=== PATIENT | female | born 1990 | race Caucasian/White ===

== ENCOUNTER 2021-06-05 15:00 | Outpatient (CLI) | payer BC ==
[2021-06-05 16:06] VITALS: BP 116/83; PULSE 90; RESP 18; TEMP 96.7
--- NOTE | 2021-06-13 09:40 | P.MSEPDOC ---
Presenting Problems - Arrival Data Date of Arrival on Unit: 06/05/21 Time of Arrival on Unit: 15:15 Mode of Transport: Ambulatory - Complaint OB-Reason for Admission/Chief Complaint: Other Comment: Itching, increased BP at home, green discharge 2 days ago Medical History - Information : 3 Para: 2 Number of Living Children: 2 - Gestational Age Gestational Age by JUNITO (wks/days): 35 Weeks and 6 Days Review of Systems - Review of Systems Constitutional: No problems Breast: No problems ENT: No problems Cardiovascular: No problems Respiratory: No problems Gastrointestinal: No problems Genitourinary: No problems Musculoskeletal: No problems Neurological: No problems Skin: Itching Vital Signs - Temperature Temperature: 96.7 F Temperature Source: Temporal Artery Scan - Pulse Right Sitting Brachial Pulse Rate: 90 Pulse Assessment Method: Automatic Cuff - Respirations Respiratory Rate: 18 Oxygen Delivery Method: Room Air O2 Sat by Pulse Oximetry: 98 - Blood Pressure Right Arm Sitting Blood Pressure: 116/83 Blood Pressure Mean: 94 Blood Pressure Source: Automatic Cuff Physician Notification - Physician Notified Physician Notified Date: 06/05/21 Physician Notified Time: 15:40 Physician: Liz Walsh Order Received: Yes - Notification Comment Comment: DC home. labs and appt tomorrow. Maternal Triage Index - Scheduled/Requesting Priority 5 Scheduled/Requesting Priority 5: Yes Criteria Met for Priority 5: BP check, NST, return for labs and appt tomorrow with dr cummings Disposition - Disposition OB Disposition: Physician follow up in office, Discharge to home Discharge Date: 06/05/21 Discharge Time: 15:45 I agree with the RN Medical Screening Exam: Yes Case reviewed; plan agreed upon as documented in EMR&OBIX.: Yes Diagnosis: RELATED CONDITIONS, UNSPECIFIED, THIRD TRIMESTER
== END 2021-06-05 15:45 | disposition home or self-care (01) ==
LOC: FBPOP 15:00
PROVIDERS: ATTEND Obstetrics & Gynecology
DX: O26.893 Other specified pregnancy related conditions, third trimester (principal); N89.8 Other specified noninflammatory disorders of vagina; Z3A.35 35 weeks gestation of pregnancy
CPT/HCPCS: 59025; 99213

== ENCOUNTER 2021-06-08 07:30 | Inpatient (IN) | payer BC ==
[2021-06-08] MEDS ORDERED: DINOPROSTONE 10 MG INSERT.ER VAGINAL ONE (19:32)
[2021-06-08] MEDS ORDERED: BUTORPHANOL 1 MG/ML 1 ML VIAL IV PRN (20:08)
[2021-06-08] MEDS ORDERED: CALCIUM CARBONATE 500 MG CHEWABLE PO PRN (20:08)
[2021-06-08] MEDS ORDERED: METHYLERGONOVINE 0.2 MG/ML 1 ML AMP IM PRN (20:09)
[2021-06-08] MEDS ORDERED: OXYTOCIN 10 UNIT/ML 1 ML VIAL IM PRN (20:09)
[2021-06-08] MEDS ORDERED: LIDOCAINE 0.5% (PF) 5 MG/ML (50 ML SDV) SQ PRN (20:09)
[2021-06-08] MEDS ORDERED: TERBUTALINE 1 MG/ML VIAL SQ PRN (20:09)
[2021-06-08] MEDS ORDERED: CARBOPROST TROMETHAMINE 250 MCG/ML 1 ML AMP IM PRN (20:09)
--- NOTE | 2021-06-08 20:21 | P.HPOB ---
History of Present Illness H&P Date: 06/08/21 Chief Complaint: 36+ weeks, cholestasis of The patient is a 30-year-old 4 para 2012 admitted at 36 and one sevenths weeks with the intention of Cervidil cervical ripening. Examination of her cervix demonstrates her cervix to be 2-3 cm dilated, 50% effaced, the vertex in presentation -2 station. As a result, the Cervidil has been canceled and she will undergo routine Pitocin induction beginning tomorrow morning. The purpose for the induction at the early gestational age was a finding of elevated fasting bile acids as well as elevated AST and ALT indicating the diagnosis of cholestasis of . Given the uncertain outcomes that are pote ntial, induction has been undertaken. On labor and delivery, all signs reassuring with a category 1 heart rate tracing. She additionally has been found with the fetus growing at the 96th percentile at 32 weeks, large for gestational age. Group B strep status has been cultured but is not available at this time. She therefore will have antibody prophylaxis started when labor begins. Obstetrical history: 4 para 2012 with current statistics listed in history present illness. EDC of 07/04/2021 was established by last menstrual period and confirmed by 9 week ultrasound. Laboratory workup demonstrates a blood type of A+ with a negative antibody screen. Rubella status is immune. The remainder of the laboratory workup was within normal limits. One hour Glucola in the first trimester was normal as was second trimester Glucola. Group B strep status is pending. Gynecologic history: Unremarkable with no history of any infections to include STDs. Review of Systems Review of systems is confined to history of present illness. She does continue to have both Gomez and thenar itching. Past Medical History History of Any Multi-Drug Resistant Organisms: None Reported Smoking Status: Never smoker Medications and Allergies Allergies Allergy/AdvReac Type Severity Reaction Status Date / Time No Known Allergies Allergy Verified 04/25/21 21:13 Exam Intake and Output 06/08/21 06/08/21 06/08/21 06:59 14:59 22:59 Other: Weight 111.13 kg In general, this is a well-developed, well-nourished white female in no acute distress. Her heart has a regular rhythm and rate without murmur. Her lungs are clear to auscultation bilaterally in all rossi. Her abdomen is gravid, nondistended, has normal active bowel sounds, is soft, nontender, and without any palpable masses aside from uterine fundus. Her extremities are without any cyanosis, clubbing, or edema and are nontender to palpation bilaterally. Digital cervical examination demonstrates her cervix to be approximately 37 m dilated, 50% effaced, with the vertex in presentation at -2 station. Assessment and Plan (1) 36 to 37 weeks gestation of Current Visit: Yes Status: Acute Code(s): ILB3509 - SNOMED Code(s): 689626667 (2) Cholestasis of Current Visit: Yes Status: Acute Code(s): O26.619 - LIVER AND BILIARY TRACT DISORD IN , UNSP TRIMESTER; K83.1 - OBSTRUCTION OF BILE DUCT SNOMED Code(s): 576895029 (3) Large for gestational age fetus Current Visit: Yes Status: Acute Code(s): FQW0301 - SNOMED Code(s): 736905332 Plan: The patient was brought to the hospital this evening for cervical ripening as her cervix in the office 2 days ago was unfavorable. Check of her cervix tonight demonstrates a favorable cervix and, therefore, Cervidil was canceled. She will have Pitocin augmentation started at 6 AM tomorrow morning with artificial rupture of membranes to follow. As her group B strep status is unknown, penicillin prophylaxis will be started at the time of Pitocin initiation. Given her elevated liver functions, we will additionally check labs for preeclampsia which are likely to be normal given her history of no previous preeclampsia. She is a good candidate for either IV or epidural analgesia, whichever she may choose. She will have close maternal and surveillance and expectant management will be practiced.
[2021-06-08] MEDS: LACTATED RINGERS 1,000 ML IV SCH (20:30)
[2021-06-08 20:56] LABS: INR 0.8 (<1.2); Partial Thromboplastin Time 22.3 sec (22.0-30.0); Prothrombin Time 9.3 sec (9.0-12.0)
[2021-06-08 21:54] LABS: Appearance,Urine Clear (Clear); Bacteria,Urine Occasional /hpf; Bilirubin,Urine Negative (Negative); Blood,Urine Trace (Negative); Color,Urine Light Yellow; Glucose,Urine (UA) Negative (Negative); Ketones,Urine Negative (Negative); Leukocyte Esterase,Urine Negative (Negative); Mucus,Urine Rare /hpf; Nitrite,Urine Negative (Negative); PH, Urine 5.5 (5.0-8.0); Protein,Urine Negative (Negative); RBC,Urine 1 /hpf (0-5); Specific Gravity,Urine 1.005 (1.001-1.035); Squamous Epithelial Cell,Urine <1 /hpf (0-4); Urobilinogen,Urine <2.0 mg/dL (<2.0); WBC,Urine 1 /hpf (0-5)
[2021-06-08 21:55] LABS: ALT 101 U/L (4-34); AST 101 U/L (14-36); African American GFR (CKD) >90 (>60 ml/min/1.73 sqM); Blood Urea Nitrogen 9 mg/dL (7-17); LDH 604 U/L (313-618); Non-African American GFR(CKD) >90 (>60 ml/min/1.73 sqM); Uric Acid 6.5 mg/dL (3.7-7.4)
[2021-06-08 21:56] LABS: Basophils % (A) 0 %; Eosinophils # (A) 0.1 k/uL (0-0.7); Eosinophils % (A) 1 %; HCT 28.9 % (34.0-46.0); HGB 9.2 gm/dL (11.4-16.0); Hypochromasia Moderate; Lymphocytes # (A) 1.8 k/uL (1.0-4.8); Lymphocytes % (A) 18 %; MCH 26.2 pg (25.0-35.0); MCV 81.9 fL (80.0-100.0); Mean Platelet Volume 12.4; Monocytes # (A) 0.5 k/uL (0-1.0); Monocytes % (A) 5 %; Neutrophils # (A) 7.1 k/uL (1.3-7.7); Neutrophils % (A) 74 %; Platelet Count 197 k/uL (150-450); Poikilocytosis Slight; RBC 3.52 m/uL (3.80-5.40); RDW 15.1 % (11.5-15.5); WBC 9.6 k/uL (3.8-10.6)
[2021-06-08 22:20] LABS: Creatinine,Urine Random 44.1 mg/dL; Protein/Creatinine Ratio,Urine 0.249
[2021-06-08 22:31] LABS: Large Platelets Present
[2021-06-09] MEDS ORDERED: PENICILLIN G POTASSIUM 5,000,000 UNIT in DEXTROSE 5% IN WATER 100 ML IVPB ONE ×2 (06:00)
[2021-06-09] MEDS ORDERED: OXYTOCIN 30 UNITS/500 ML NS 30 UNIT in SALINE 1 500ML.BAG IV SCH ×2 (06:00→12:15)
[2021-06-09] MEDS: LACTATED RINGERS 1,000 ML IV SCH ×2 (09:35→21:03)
[2021-06-09] MEDS ORDERED: SODIUM CHLORIDE 0.9% 100 ML BAG ONE ×2 (10:00→10:21)
[2021-06-09] MEDS ORDERED: ROPIVACAINE 5MG/ML 20ML VIAL ONE ×2 (10:00→10:21)
[2021-06-09] MEDS ORDERED: PENICILLIN G POTASSIUM 2,500,000 UNIT in DEXTROSE 5% IN WATER 100 ML IVPB SCH ×2 (10:00)
[2021-06-09] MEDS ORDERED: fentaNYL (PF) 50 MCG/ML 5 ML AMP ONE ×2 (10:00→10:21)
[2021-06-09] MEDS ORDERED: ROPIVACAINE 100 MG, fentaNYL (PF). 200 MCG in SODIUM CHLORIDE 0.9% 76 ML EPIDURAL ONE (11:32)
[2021-06-09] MEDS ORDERED: HYDROCORTISONE 2.5% RECTAL CREAM 30 GM TUBE RECTAL PRN (12:11)
[2021-06-09] MEDS ORDERED: diphenhydrAMINE 50 MG CAP PO PRN (12:11)
[2021-06-09] MEDS ORDERED: BENZOCAINE/MENTHOL SPRAY 1 GM/SPRAY AEROSOL TOPICAL PRN (12:11)
[2021-06-09] MEDS ORDERED: SIMETHICONE 80 MG CHEWABLE PO PRN (12:11)
[2021-06-09] MEDS ORDERED: diphenhydrAMINE 50 MG/ML 1 ML VIAL IVP PRN ×2 (12:11)
[2021-06-09] MEDS ORDERED: diphenhydrAMINE 25 MG CAP PO PRN (12:11)
[2021-06-09] MEDS ORDERED: ZOLPIDEM 5 MG TAB PO PRN (12:11)
[2021-06-09] MEDS ORDERED: HYDROcodone/APAP 7.5-325MG 1 EACH TAB PO PRN (12:11)
[2021-06-09] MEDS ORDERED: HYDROcodone/APAP 5-325MG 1 EACH TAB PO PRN (12:11)
--- NOTE | 2021-06-09 12:16 | P.PROBDLV ---
Vaginal Delivery Note - . Vaginal Delivery Note: The patient is a 30-year-old 4 para 2011 admitted at 36-2/7 weeks for induction of labor secondary to the diagnosis of cholestasis of . The diagnosis was made by elevated fasting bile acids as well as elevated AST and ALT. There was no evidence of preeclampsia causing the elevated liver functions. Her has otherwise been uncomplicated until this diagnosis which became symptomatic approximate 1 week ago with pulmonary teen or itching. She was initially admitted last evening for Cervidil cervical ripening was found to have her cervix to be 2-3 cm dilated and therefore the Cervidil was canceled in favor of routine Pitocin induction this morning. On labor and delivery, all signs were reassuring with a category 1 heart rate tracing. She had Pitocin augmentation started this morning followed by artificial rupture of membranes for clear fluid. She had an epidural catheter placed for analgesia at approximately 4 cm of dilation. She then made very rapid progress to complete and pushed over the course of 1 contraction to a normal spontaneous vaginal delivery of a viable 7 lbs. 6 oz. baby boy with Apgars of 9 at 1 minute and 9 at 5 minutes delivered in the direct occiput anterior position. The placenta was delivered spontaneously, intact, and grossly normal with a grossly normal, centrally inserted three-vessel cord. There was a small second-degree midline perineal laceration in the site of a previous laceration which was repaired in standard fashion using 3-0 chromic catgut without difficulty. Estimated blood loss for the case is approximately 100 mL. There were no complications. All sponge, instrument, and needle counts were correct. Both mother and are resting comfortably in recovery.
[2021-06-09] MEDS: IBUPROFEN 600 MG TAB PO PRN ×2 (17:00→23:03)
[2021-06-09] MEDS: ACETAMINOPHEN TAB 325 MG TAB PO PRN (19:02)
[2021-06-09] MEDS: SENNOSIDES-DOCUSATE SODIUM 1 EACH TAB PO SCH (19:58)
[2021-06-10] MEDS: ACETAMINOPHEN TAB 325 MG TAB PO PRN ×2 (02:19→08:11)
[2021-06-10] MEDS: IBUPROFEN 600 MG TAB PO PRN ×2 (05:13→14:01)
[2021-06-10 07:40] LABS: Basophils % (A) 0 %; Eosinophils # (A) 0.1 k/uL (0-0.7); Eosinophils % (A) 1 %; HGB 8.6 gm/dL (11.4-16.0); Hypochromasia Marked; Lymphocytes # (A) 2.1 k/uL (1.0-4.8); Lymphocytes % (A) 20 %; MCH 26.3 pg (25.0-35.0); MCHC 31.8 g/dL (31.0-37.0); MCV 82.9 fL (80.0-100.0); Monocytes # (A) 0.5 k/uL (0-1.0); Monocytes % (A) 5 %; Neutrophils # (A) 7.5 k/uL (1.3-7.7); Neutrophils % (A) 71 %; Platelet Count 169 k/uL (150-450); RBC 3.26 m/uL (3.80-5.40); RDW 15.2 % (11.5-15.5); WBC 10.6 k/uL (3.8-10.6)
[2021-06-10] MEDS: SENNOSIDES-DOCUSATE SODIUM 1 EACH TAB PO SCH (08:12)
[2021-06-10 08:18] VITALS: BP 126/72; PULSE 61; RESP 14; TEMP 97.6
[2021-06-10 08:55] LABS: Large Platelets Present
--- NOTE | 2021-06-10 10:01 | P.DS ---
Providers Date of admission: 06/08/21 19:18 Expected date of discharge: 06/10/21 Attending physician: Carloz Rodriguez Primary care physician: Stated None - Discharge Diagnosis(es) (1) 36 to 37 weeks gestation of Current Visit: Yes Status: Acute (2) Cholestasis of Current Visit: Yes Status: Acute (3) Large for gestational age fetus Current Visit: Yes Status: Acute (4) Normal spontaneous vaginal delivery Current Visit: Yes Status: Acute Hospital Course: The patient is a 30-year-old 4 para 2012 admitted at 36 and one sevenths weeks of for intended Cervidil cervical ripening secondary to a diagnosis of cholestasis of . Cervical examination demonstrated cervix to be 2-3 cm dilated and Cervidil was abandoned in favor of Pitocin induction following morning. As a result, she had Pitocin started early in the morning of the delivery and underwent artificial rupture of membranes for clear fluid. She had an epidural catheter placed for analgesia and then made quick progress to complete. She pushed to a normal spontaneous vaginal delivery of a viable 7 lbs. 6 oz. baby boy with Apgars of 9 at 1 minute and 9 at 5 minutes. Her course has been unremarkable with vital signs remained stable and her temperature was afebrile throughout. She was deemed stable for discharge on day #1 and was discharged home to follow-up in the office in 6 weeks' time routinely. Discharge instructions included calling for any significantly increased bleeding or foul-smelling lochia, significantly increased fever or abdominal pain, perineal complaints, breast complaints, or anything else that concerned her. She was additionally instructed to have nothing in the vagina for at least 6 weeks time to include intercourse. She understood her instructions and agrees to follow up as noted above. Discharge medications included only [id number] analgesic pain medications. Maternal blood type is A+ and rubella status is immune. Procedures: #1. Pitocin induction #2. Artificial rupture of membranes #3. Epidural analgesia #4. Normal spontaneous vaginal delivery #5. Repair of perineal laceration Patient Condition at Discharge: Stable Plan - Discharge Summary Follow up Appointment(s)/Referral(s): Carloz Rodriguez MD [STAFF PHYSICIAN] - 6 Weeks Discharge Disposition: HOME SELF-CARE
== END 2021-06-10 14:34 | disposition home or self-care (01) | DRG 805 ==
LOC: 4FBP 19:18
PROVIDERS: ADMIT Obstetrics & Gynecology; ATTEND Obstetrics & Gynecology
PROC: 10907ZC Drainage of Amniotic Fluid, Therapeutic from Products of Conception, Via Natural or Artificial Opening (ICD-10-PCS; 2021-06-08)
PROC: 3E033VJ Introduction of Other Hormone into Peripheral Vein, Percutaneous Approach (ICD-10-PCS; 2021-06-08)
PROC: 00HU33Z Insertion of Infusion Device into Spinal Canal, Percutaneous Approach (ICD-10-PCS; principal; 2021-06-09)
PROC: 10E0XZZ Delivery of Products of Conception, External Approach (ICD-10-PCS; principal; 2021-06-09)
PROC: 0KQM0ZZ Repair Perineum Muscle, Open Approach (ICD-10-PCS; principal; 2021-06-09)
PROC: 3E0R3NZ Introduction of Analgesics, Hypnotics, Sedatives into Spinal Canal, Percutaneous Approach (ICD-10-PCS; principal; 2021-06-09)
DX: O26.62 Liver and biliary tract disorders in childbirth (principal); K83.1 Obstruction of bile duct; Z37.0 Single live birth; O36.63X0 Maternal care for excessive fetal growth, third trimester, not applicable or unspecified; O70.1 Second degree perineal laceration during delivery; Z3A.36 36 weeks gestation of pregnancy
CPT/HCPCS: 81001; 82565; 82570; 83615; 84156; 84450; 84460; 84520; 84550; 85025; 85610; 85730; 86850; 86900; 86901; 88307

== ENCOUNTER 2023-09-15 12:29 | Emergency (ER) | payer BC ==
[2023-09-15 12:42] VITALS: RESP 18
[2023-09-15] MEDS ORDERED: KETOROLAC 15 MG/ML 1 ML VIAL IM STA (13:35)
--- NOTE | 2023-09-15 13:35 | ED ---
General Adult HPI - General Chief complaint: Back Pain/Injury Stated complaint: Back Pain Time Seen by Provider: 09/15/23 12:46 Source: patient, RN notes reviewed Mode of arrival: ambulatory Limitations: no limitations - History of Present Illness Initial comments: 33-year-old female presents to the emergency Department with chief complaint of bilateral flank pain. She states that this been going on for around one week. She states that the pain is constant and she has taken Motrin once or twice with out relief. She denies radiation of the pain. She does note that this occurs just prior to her menstrual cycle for the past 2-3 months. She did not experience this prior to then. She denies urinary frequency, hematuria. Denies abdominal pain. Denies nausea, vomiting, fever, chills. - Related Data Allergies Allergy/AdvReac Type Severity Reaction Status Date / Time No Known Allergies Allergy Verified 04/25/21 21:13 Review of Systems ROS Statement: Those systems with pertinent positive or pertinent negative responses have been documented in the HPI. ROS Other: All systems not noted in ROS Statement are negative. Past Medical History Past Medical History: No Reported History History of Any Multi-Drug Resistant Organisms: None Reported Past Surgical History: No Surgical Hx Reported Past Anesthesia/Blood Transfusion Reactions: No Reported Reaction Past Psychological History: ADD/ADHD, Anxiety Smoking Status: Never smoker Past Alcohol Use History: None Reported Past Drug Use History: None Reported - Past Family History Mother Family Medical History: No Reported History Father Family Medical History: No Reported History General Exam Limitations: no limitations General appearance: alert, in no apparent distress Head exam: Present: atraumatic, normocephalic, normal inspection Eye exam: Present: normal appearance, PERRL, EOMI. Absent: scleral icterus, conjunctival injection, periorbital swelling ENT exam: Present: normal exam, mucous membranes moist Respiratory exam: Present: normal lung sounds bilaterally. Absent: respiratory distress, wheezes, rales, rhonchi, stridor Cardiovascular Exam: Present: regular rate, normal rhythm, normal heart sounds. Absent: systolic murmur, diastolic murmur, rubs, gallop, clicks GI/Abdominal exam: Present: soft, normal bowel sounds. Absent: distended, t enderness, guarding, rebound, rigid Extremities exam: Present: normal inspection, full ROM, normal capillary refill. Absent: tenderness, pedal edema, joint swelling, calf tenderness Back exam: Present: normal inspection. Absent: CVA tenderness (R), CVA tenderness (L) Neurological exam: Present: alert, oriented X3 Psychiatric exam: Present: normal affect, normal mood Skin exam: Present: warm, dry, intact, normal color. Absent: rash Course Vital Signs 09/15/23 09/15/23 09/15/23 12:32 13:51 17:32 Temperature 98.0 F 98.1 F 98.2 F Pulse Rate 96 87 74 Respiratory 18 18 18 Rate Blood Pressure 131/84 130/81 129/88 O2 Sat by Pulse 99 99 100 Oximetry Medical Decision Making - Medical Decision Making Was pt. sent in by a medical professional or institution (, PA, POWERPLANT OPERATOR, urgent care, hospital, or usp...) When possible be specific @ -No Did you speak to anyone other than the patient for history (EMS, parent, family, police, friend...)? What history was obtained from this source @ -No Did you review nursing and triage notes (agree or disagree)? Why? @ -I reviewed and agree with nursing and triage notes Were old charts reviewed (outside hosp., previous admission, EMS record, old EKG, old radiological studies, urgent care reports/EKG's, usp records)? Report findings @ -No old charts were reviewed Differential Diagnosis (chest pain, altered mental status, abdominal pain women, abdominal pain men, vaginal bleeding, weakness, fever, dyspnea, syncope, headache, dizziness, GI bleed, back pain, seizure, CVA, palpatations, mental health, musculoskeletal)? @ -Differential Back Pain: Strain, zoster, cauda equina syndrome, epidural abscess, vertebral osteomyelitis, discitis, fracture, subluxation, disc herniation, DJD, spinal stenosis, dissection, AAA, pancreatitis, peptic ulcer disease, pyelonephritis, kidney stone, this is not meant to be an all-inclusive list. EKG interpreted by me (3pts min.). @ -None X-rays interpreted by me (1pt min.). @ -None done CT interpreted by me (1pt min.). @ -CT abdomen pelvis shows no acute process U/S interpreted by me (1pt. min.). @ -None done What testing was considered but not performed or refused? (CT, X-rays, U/S, l abs)? Why? @ -X-rays considered patient does not have any midline tenderness What meds were considered but not given or refused? Why? @ -None Did you discuss the management of the patient with other professionals (professionals i.e. , PA, POWERPLANT OPERATOR, lab, RT, psych nurse, social science analyst, central office trouble shooter, teacher, safety instruction police officer, manager case management)? Give summary @ -No Was smoking cessation discussed for >3mins.? @ -No Was critical care preformed (if so, how long)? @ -No Were there social determinants of health that impacted care today? How? (Homelessness, low income, unemployed, alcoholism, drug addiction, transportation, low edu. Level, literacy, decrease access to med. care, residential, rehab)? @ -No Was there de-escalation of care discussed even if they declined (Discuss DNR or withdrawal of care, Hospice)? DNR status @ -No What co-morbidities impacted this encounter? (DM, HTN, Smoking, COPD, CAD, Cancer, CVA, ARF, Chemo, Hep., AIDS, mental health diagnosis, sleep apnea, morbid obesity)? @ -None Was patient admitted / discharged? Hospital course, mention meds given and route, prescriptions, significant lab abnormalities, going to OR and other pertinent info. @ -Discharged. Patient presented to the emergency department with chief complaint of bilateral flank pain 7 days. She has experienced this in the past. Laboratory studies obtained which are within normal limits. UA shows Light orange urine, patient reports taking Azo recently, greater than 182 RBCs patient is on her menstrual cycle. CT abdomen and pelvis shows no evidence of acute process. Patient was advised on findings and to follow up with her primary care provider. Patient understanding and agreeable with discharge plan. Patient stable at time of discharge. Case discussed with Dr. Paz. Undiagnosed new problem with uncertain prognosis? @ -No Drug Therapy requiring intensive monitoring for toxicity (Heparin, Nitro, Insulin, Cardizem)? @ -No Were any procedures done? @ -No Diagnosis/symptom? @ -Flank pain Acute, or Chronic, or Acute on Chronic? @ -Acute Uncomplicated (without systemic symptoms) or Complicated (systemic symptoms)? @ -uncomplicated Side effects of treatment? @ -No Exacerbation, Progression, or Severe Exacerbation? @ -No Poses a threat to life or bodily function? How? (Chest pain, USA, NM, pneumonia, PE, COPD, DKA, ARF, appy, cholecystitis, CVA, Diverticulitis, Homicidal, Suicidal, threat to staff... and all critical care pts) @ -No - Lab Data Result diagrams: 09/15/23 13:44 09/15/23 13:44 Lab Results 09/15/23 09/15/23 09/15/23 Range/Units 13:44 13:44 14:23 WBC 6.9 (3.8-10.6) k/uL RBC 4.15 (3.80-5.40) m/uL Hgb 11.6 (11.4-16.0) gm/dL Hct 36.0 (34.0-46.0) % MCV 86.9 (80.0-100.0) fL MCH 28.1 (25.0-35.0) pg MCHC 32.3 (31.0-37.0) g/dL RDW 13.7 (11.5-15.5) % Plt Count 213 (150-450) k/uL MPV 8.5 Neutrophils % 71 % Lymphocytes % 20 % Monocytes % 6 % Eosinophils % 2 % Basophils % 0 % Neutrophils # 4.9 (1.3-7.7) k/uL Lymphocytes # 1.4 (1.0-4.8) k/uL Monocytes # 0.4 (0-1.0) k/uL Eosinophils # 0.2 (0-0.7) k/uL Basophils # 0.0 (0-0.2) k/uL Sodium 138 (137-145) mmol/L Potassium 3.7 (3.5-5.1) mmol/L Chloride 104 (98-107) mmol/L Carbon Dioxide 23 (22-30) mmol/L Anion Gap 11 mmol/L BUN 11 (7-17) mg/dL Creatinine 0.79 (0.52-1.04) mg/dL Est GFR (CKD-EPI)AfAm >90 (>60 ml/min/1.73 sqM) Est GFR (CKD-EPI)NonAf >90 (>60 ml/min/1.73 sqM) Glucose 87 (74-99) mg/dL Calcium 8.8 (8.4-10.2) mg/dL Total Bilirubin 0.5 (0.2-1.3) mg/dL AST 31 (14-36) U/L ALT 34 (4-34) U/L Alkaline Phosphatase 78 (38-126) U/L Total Protein 7.4 (6.3-8.2) g/dL Albumin 4.3 (3.5-5.0) g/dL Lipase 49 (23-300) U/L Urine Color Light [place] Urine Appearance Clear (Clear) Urine pH 6.0 (5.0-8.0) Ur Specific [place] 1.020 (1.001-1.035) Urine Protein Trace H (Negative) Urine Glucose (UA) Negative (Negative) Urine Ketones Negative (Negative) Urine Blood Negative (Negative) Urine Nitrite Negative (Negative) Urine Bilirubin Negative (Negative) Urine Urobilinogen <2.0 (<2.0) mg/dL Ur Leukocyte Esterase Moderate (Negative) Urine RBC >182 H (0-5) /hpf Urine WBC 3 (0-5) /hpf Ur Squamous Epith Cells 4 (0-4) /hpf Urine Mucus Many H (None) /hpf Disposition Clinical Impression: Flank pain Disposition: HOME SELF-CARE Condition: Stable Instructions (If sedation given, give patient instructions): Acute Low Back Pain (ED) Additional Instructions: Please follow up with your primary care provider and medical physics professor. Alternate Tylenol and Motrin for pain. Utilize heating pads for discomfort. Return to the emergency department for new or worsening symptoms. Is patient prescribed a controlled substance at d/c from ED?: No Referrals: Sharan Benavides MD [Primary Care Provider] - 1-2 days
[2023-09-15] MEDS ORDERED: KETOROLAC 15 MG/ML 1 ML VIAL IVP STA (13:49)
[2023-09-15 14:27] LABS: ALT 34 U/L (4-34); AST 31 U/L (14-36); African American GFR (CKD) >90 (>60 ml/min/1.73 sqM); Albumin 4.3 g/dL (3.5-5.0); Alkaline Phosphatase 78 U/L (38-126); Anion Gap 11 mmol/L; Blood Urea Nitrogen 11 mg/dL (7-17); Calcium 8.8 mg/dL (8.4-10.2); Carbon Dioxide 23 mmol/L (22-30); Chloride 104 mmol/L (98-107); Glucose 87 mg/dL (74-99); Lipase 49 U/L (23-300); Non-African American GFR(CKD) >90 (>60 ml/min/1.73 sqM); Potassium 3.7 mmol/L (3.5-5.1); Sodium 138 mmol/L (137-145); Total Bilirubin 0.5 mg/dL (0.2-1.3); Total Protein 7.4 g/dL (6.3-8.2)
[2023-09-15 14:55] LABS: Basophils % (A) 0 %; Eosinophils # (A) 0.2 k/uL (0-0.7); Eosinophils % (A) 2 %; HGB 11.6 gm/dL (11.4-16.0); Lymphocytes # (A) 1.4 k/uL (1.0-4.8); Lymphocytes % (A) 20 %; MCH 28.1 pg (25.0-35.0); MCHC 32.3 g/dL (31.0-37.0); MCV 86.9 fL (80.0-100.0); Mean Platelet Volume 8.5; Monocytes # (A) 0.4 k/uL (0-1.0); Monocytes % (A) 6 %; Neutrophils # (A) 4.9 k/uL (1.3-7.7); Neutrophils % (A) 71 %; Platelet Count 213 k/uL (150-450); RBC 4.15 m/uL (3.80-5.40); RDW 13.7 % (11.5-15.5); WBC 6.9 k/uL (3.8-10.6)
[2023-09-15 15:31] LABS: Mucus,Urine Many /hpf; RBC,Urine >182 /hpf (0-5); Squamous Epithelial Cell,Urine 4 /hpf (0-4); WBC,Urine 3 /hpf (0-5)
[2023-09-15 15:39] LABS: Appearance,Urine Clear (Clear); Bilirubin,Urine Negative (Negative); Blood,Urine Negative (Negative); Color,Urine Light Orange; Glucose,Urine (UA) Negative (Negative); Ketones,Urine Negative (Negative); Nitrite,Urine Negative (Negative); Protein,Urine Trace (Negative); Urobilinogen,Urine <2.0 mg/dL (<2.0)
[2023-09-15 15:40] LABS: Leukocyte Esterase,Urine Moderate (Negative)
--- NOTE | 2023-09-15 17:29 | CT ---
EXAMINATION TYPE: CT abdomen pelvis wo con DATE OF EXAM: 09/15/2023 COMPARISON: None INDICATION: bilateral flank pain, heavy periods with clotting DLP: 767.8 mGycm, Automated exposure control for dose reduction was used. CONTRAST: 0 mL of Isovue 300. Study performed without Oral Contrast TECHNIQUE: Axial images were obtained from above the diaphragm to the pubic rami in the axial plane a t 5 mm thick sections. Reconstructed images are reviewed on the computer in the coronal plane. FINDINGS: Limited CT sections are obtained the lung bases. The lung bases are clear. CT ABDOMEN: Liver: Normal Spleen: Normal Pancreas: Normal Adrenal glands: The adrenal glands are normal. Gallbladder: Normal Kidneys: No masses are evident. No hydronephrosis is present. No cysts are present. No renal stone s are evident. Aorta: Normal Inferior vena cava: Normal. CT PELVIS: Loops of bowel within the abdomen and pelvis are normal. This study is without oral contrast limi ting bowel evaluation. Appendix: There appears to be the appendix is normal. No suspicious dilated tubular structure or infl ammatory changes are evident. Urinary bladder: Normal. Genitourinary structures: Uterus is somewhat bulky. Suspicious abnormality ovaries not identified. Ul trasound and MRI can be performed if closer evaluation of the uterus would be of benefit. Osseous structures: No suspicious lytic or sclerotic lesions. IMPRESSION: 1. No suspicious acute changes noncontrast CT abdomen and pelvis
[2023-09-15 17:41] VITALS: BP 129/88; PULSE 74; TEMP 98.2
== END 2023-09-15 17:55 | disposition home or self-care (01) ==
LOC: EC 12:29
DX: R10.9 Unspecified abdominal pain (principal)
CPT/HCPCS: 99284; 96374; 36415; 80053; 83690; 85025; 81001; 74176; J1885